=== PATIENT | female | born 2000 | race Caucasian/White ===

== ENCOUNTER 2022-01-09 16:55 | Emergency (ER) | payer OTHER ==
[~2022-01-09] VITALS: Ht 162.6 cm; Wt 56.7 kg
[2022-01-09] MEDS ORDERED: methylPREDNISolone SOD SUCC/PF 62.5 MG/ML VIAL IVP ONE (17:15)
[2022-01-09 17:40] VITALS: BP_SYST 115
[2022-01-09] MEDS ORDERED: PRED20TA PO (18:29)
[2022-01-09] MEDS ORDERED: EPIN0.1519 IM (18:29)
[2022-01-09] MEDS ORDERED: DIPH25CA83 PO (18:30)
[2022-01-09] MEDS ORDERED: FAMO20TA8 PO (18:30)
== END 2022-01-09 19:05 | disposition home or self-care (01) ==
LOC: SED 16:55
DX: T78.2XXA Anaphylactic shock, unspecified, initial encounter (principal); Z91.018 Allergy to other foods; Z79.899 Other long term (current) drug therapy
CPT/HCPCS: 96374; 99283; J2930